=== PATIENT | female | born 1965 | race Caucasian/White ===

== ENCOUNTER 2020-03-08 08:20 | Day surgery (SDC) | payer OTHER ==
--- NOTE | 2020-03-05 10:50 | RADIOLOGY REPORT (SQ) ---
EXAM DESCRIPTION: CHEST 2 VIEWS IMAGES COMPLETED DATE/TIME: 03/05/2020 10:42 am REASON FOR STUDY: PRE OP TESTING COMPARISON: 02/18/2011 EXAM PARAMETERS: NUMBER OF VIEWS: two views TECHNIQUE: Digital Frontal and Lateral radiographic views of the chest acquired. RADIATION DOSE: NA LIMITATIONS: none FINDINGS: LUNGS AND PLEURA: No opacities, masses or pneumothorax. No pleural effusion. MEDIASTINUM AND HILAR STRUCTURES: No masses or contour abnormalities. HEART AND VASCULAR STRUCTURES: Heart normal size. No evidence for failure. BONES: No acute findings. HARDWARE: None in the chest. OTHER: No other significant finding. IMPRESSION: NO ACUTE RADIOGRAPHIC FINDING IN THE CHEST. TECHNICAL DOCUMENTATION: JOB ID: [id number] 2010 [employer]- All Rights Reserved Reading location - IP/workstation name: [email or web address]
[2020-03-05 10:56] LABS: HEMATOCRIT 35.3 % (36.0-47.0); HEMOGLOBIN 12.5 g/dL (12.0-15.5); MEAN CORPUSCULAR HEMOGLOBIN 30.9 pg (27.0-33.4); MEAN CORPUSCULAR HGB CONC 35.5 g/dL (32.0-36.0); MEAN CORPUSCULAR VOLUME 87 fl (80-97); PLATELET COUNT 260 10^3/uL (150-450); RED BLOOD COUNT 4.06 10^6/uL (3.72-5.28); RED CELL DISTRIBUTION WIDTH 13.1 % (11.5-14.0)
[2020-03-05 11:01] LABS: APPEARANCE,URINE CLEAR; BILIRUBIN,URINE NEGATIVE (NEGATIVE); COLOR,URINE YELLOW; GLUCOSE, URINE NEGATIVE (NEGATIVE); KETONES,URINE NEGATIVE (NEGATIVE); LEUKOCYTE ESTERASE,URINE NEGATIVE (NEGATIVE); NITRITE,URINE NEGATIVE (NEGATIVE); PROTEIN,URINE NEGATIVE (NEGATIVE); URINE SPECIFIC GRAVITY 1.024; UROBILINOGEN,URINE NEGATIVE mg/dL (<2.0)
[2020-03-05 11:37] LABS: ALBUMIN 4.1 g/dL (3.5-5.0); ALKALINE PHOSPHATASE 87 U/L (38-126); ANION GAP 6 (5-19); ASPARTATE AMINO TRANSFERASE 29 U/L (14-36); BILIRUBIN,DIRECT 0.3 mg/dL (0.0-0.4); BILIRUBIN,TOTAL 0.5 mg/dL (0.2-1.3); BLOOD UREA NITROGEN 22 mg/dL (7-20); CALCIUM 8.9 mg/dL (8.4-10.2); CARBON DIOXIDE 24 mmol/L (22-30); CHLORIDE 107 mmol/L (98-107); GLUCOSE 100 mg/dL (75-110); POTASSIUM 4.5 mmol/L (3.6-5.0); TOTAL PROTEIN 7.3 g/dL (6.3-8.2)
--- NOTE | 2020-03-05 13:17 | EKG REPORT ---
SEVERITY:- BORDERLINE ECG - SINUS RHYTHM BORDERLINE LEFT AXIS DEVIATION BORDERLINE T ABNORMALITIES, INFERIOR LEADS : Confirmed by: Abad Jones MD 05-Mar-2020 13:16:55
[~2020-03-08 08:20] MED LIST: CEFAZOLIN 1 GM/D5W RTU 1 GM/50 ML RTUPB IV PRN; DEXAMETHASONE SOD PHOSPHATE INJ 4 MG/1 ML VIAL ONE; DEXMEDETOMIDINE INJ 80 MCG/20 ML VIAL IV ONE; FENTANYL CITRATE INJ/PF 250 MCG/5 ML AMPULE ONE; KETOROLAC TROMETHAMINE 60 MG/2 ML SDV ONE; LIDOCAINE 2% INJ-PF (100 MG/5 ML) SYRINGE ONE; MIDAZOLAM 2 MG/2 ML INJ ONE; ONDANSETRON HCL INJ/PF 4 MG/2 ML SDV ONE; PROPOFOL INJ 200 MG/20 ML VIAL IV ONE; RINGERS SOLUTION,LACTATED 1,000 ML IV PRN
--- OUTSIDE RECORDS SUMMARY | 2020-03-08 08:33 | XMS REPORT ---
:1965 [facility] [address] [place] [address] Care Team Providers Name Role Phone Karla KRAUS Primary Care Physician Unavailable ABDIAS MESA Attending Clinician Unavailable JONAS FELIZ Attending Clinician Unavailable Dontae COTTON Attending Clinician Unavailable ROSALVA SHAH Attending Clinician Unavailable ROSALVA SHAH Admitting Clinician Unavailable Allergies, Adverse Reactions, Alerts Allergy Allergy Type Status Severity Reaction(s) Onset Inactive Treat ing Comments Name Date Date Clinician Codeine Propensity Active Low Other (See 2017-06 Claudine hoyt to adverse Comments) -30 reactions to 00:00:0 drug 0 Medications Ordered Filled Start Stop Current Ordering Indication Dosage Frequency Signature Comments Components Medication Medication Date Date Medication? Clinician (SIG) Name Name tamoxifen 2019-02- Yes Ductal 20mg Take 1 Take 1 (NOLVADEX) 0-29 10-29 carcinoma tablet (20 tablet 20 MG 00:00: 23:59 in situ mg total) (20 mg tablet 00 :00 (DCIS) of by mouth total) by right daily. mouth breast daily. tamoxifen 2019-02- No Ductal 20mg Take 1 Take 1 (NOLVADEX) 0-28 10-29 carcinoma tablet (20 tablet 20 MG 00:00: 00:00 in situ mg total) (20 mg tablet 00 :00 (DCIS) of by mouth total) by right daily. mouth breast daily. tamoxifen 2019- No Ductal 20mg Take 1 Take 1 (NOLVADEX) 6-22 10-28 carcinoma tablet (20 tablet 20 MG 00:00: 00:00 in situ mg total) (20 mg tablet 00 :00 (DCIS) of by mouth total) by right daily. mouth breast daily. ibuprofen 2018-02 Yes 600mg Take 600 Take 6 00 (MOTRIN) 2-20 mg by mg by 600 MG 09:26: mouth mouth tablet 54 every every eight (8) eight (8) hours as hours as needed for needed pain. for pain. tamoxifen 2019- No Ductal 20mg Take 1 Take 1 (NOLVADEX) 08-06 carcinoma tablet (20 tablet 20 MG 00:00: 00:00 in situ mg total) (20 mg tablet 00 :00 (DCIS) of by mouth total) by right daily. mouth breast daily. tamoxifen 2017-02 No Ductal 20mg Take 1 Take 1 (NOLVADEX) 1-15 - carcinoma tablet (20 tablet 20 MG 00:00: 00:00 in situ mg total) (20 mg tablet 00 :00 (DCIS) of by mouth total) by right daily. mouth breast daily. acetaminoph Yes 650mg Take 650 Take 650 en 8-06 mg by mg by (TYLENOL) 08:25: mouth mouth 325 MG 33 every six every six tablet (6) hours (6) hours as needed as needed for pain. for pain. ibuprofen No 200mg Take 200 Take 2 00 (CHILDREN'S 8-06 mg by mg by MOTRIN) 100 08:25: mouth mouth mg/5 mL 33 every every suspension eight (8) eight (8) hours as hours as needed for needed pain,mild for (1-3). pain,mild (1-3). tamoxifen No 20MG Take 1 Take 1 (NOLVADEX) 8- 11-15 tablet (20 tabl et 20 MG 00:00: 00:00 mg total) (20 mg tablet 00 :00 by mouth total) by daily. mouth daily. oxyCODONE-a No 1{tbl} Take 1-2 Surjit e 1-2 cetaminophe - 07-31 tablets by tab lets n 00:00: 23:59 mouth by mouth (PERCOCET) 00 :00 every four ever y 5-325 mg (4) hours four (4 ) per tablet as needed hours as for pain. needed for up to for pain. 5 days for up to 5 days sulfamethox 2017- No Take 1 Take 1 azole-trime 09-01- tablet tablet thoprim 00:00: 00:00 (160 mg of (160 m g (BACTRIM 00 :00 trimethopr of DS) 800-160 im total) trim ethop mg per by mouth rim tablet Two (2) total) by times a mouth Two day. for (2) times 10 days a day. for 10 days oxyCODONE-a 2018- No 1{tbl} Take 1 Take 1 cetaminophe 09-01 tablet by tabl et by n 00:00: 23:59 mouth mouth (PERCOCET) 00 :00 every four ever y 5-325 mg (4) hours four (4 ) per tablet as needed hours as for pain. needed for up to for pain. 5 days for up to 5 days acetaminoph 2017- No 650MG Take 2 Take 2 en 08-11 tablets tablets (TYLENOL) 00:00: 23:59 (650 mg (650 mg 325 MG 00 :00 total) by total) by tablet mouth mouth every six every six (6) hours (6) hours as needed as needed for pain. for pain. for up to for up to 14 days 14 days docusate 2018- No 100MG Take 1 Take 1 sodium 08-1103 capsule capsule (COLACE) 00:00: 23:59 (100 mg (100 mg 100 MG 00 :00 total) by total) by capsule mouth mouth daily. for daily. 7 days for 7 days oxyCODONE-a 2018- No 1{tbl} Take 1-2 Surjit e 1-2 cetaminophe 08-11 tablets by tab lets n 00:00: 23:59 mouth by mouth (PERCOCET) 00 :00 every four ever y 5-325 mg (4) hours four (4 ) per tablet as needed hours as for pain. needed for up to for pain. 5 days for up to 5 days ibuprofen Yes 200mg Take 200 Take 2 00 (CHILDREN'S 5-30 mg by mg by MOTRIN) 100 12:04: mouth mouth mg/5 mL 46 every every suspension eight (8) eight (8) hours as hours as needed for needed pain,mild for (1-3). pain,mild (1-3). lisinopril Yes 10mg Take 10 mg Surjit e 10 (PRINIVIL,Z 5-02 by mouth mg by ESTRIL) 10 00:00: Three (3) mout h MG tablet 00 times a Three (3 ) day. times a day. sertraline Yes 150mg Take 150 Take 150 (ZOLOFT) 3-26 mg by mg by 100 MG 00:00: mouth mouth tablet 00 daily. daily. Problems Condition Condition Condition Status Onset Resolution Last Treatin g Comments Name Details Category Date Date Treatment Clinician Date Ductal Ductal Condition Active 2017-07-14 carcinoma carcinoma 07-14 22:24:08 in situ in situ 00:00: (DCIS) of (DCIS) of 00 right right breast breast Procedures Procedure Date / Time Performed Performing Clinician Rashad izquierdo MAMMO DIGITAL DIAGNOSTIC 2019-08-08 08:25:53 Clementine Feliz BILATERAL MAMMO DIGITAL DIAGNOSTIC 2019-02-04 13:12:46 Clementine Feliz RIGHT MAMMO DIGITAL DIAGNOSTIC 2018-08-06 12:26:30 Clementine Feliz BILATERAL MAMMO NEEDLE LOCALIZATION 2017-08-11 11:08:56 Melba Shah RIGHT US BREAST LIMITED LEFT 2017-07-15 10:43:50 Imtiaz Shah MAMMO DIGITAL DIAGNOSTIC 2017-07-15 10:22:20 Nora Shah BILATERAL Results Test Description Test Time Test Comments Text Results Atomic Results Result Comments Mammo Diagnostic 2019-08-08 Mammo Diagnostic Bilater al (08/08/2019 8:25 AM Bilateral 08:31:32 EDT)SpecimenNarrativePerform ed AtEXAM: MAMMO (08/08/2019 8:25 DIGITAL DIAGNOSTIC BILA TERALDATE: 08/08/2019 AM EDT) 8:25 AMACCESSION: [id number] 0UNDICTATED: 08/08/2019 8:31 AMINTERPRETAT ION LOCATION: [facility] [place] CLINICAL INDICATION: 53 years old Female with CARCINOMA IN SITU OF BR EAST - 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 Status post right lumpectomy COMPARISON: 2018, 2017 studi es TECHNIQUE: Bilateral full-field digital mammography and spot compression magnificati on views right lumpectomy site BREAST DENSI TY: c - The breasts are heterogeneously dense, w hich may obscure small masses FINDINGS: At the lumpectomy site in the right breast, there i s expected density and architectural distortion . There are no suspicious masses, malignant calcifications, sites of non-surgical radha ectural distortion, or concerning asymmetries in either breast. ASSESSMENT:BI-RADS Category: 2-[id number] : Benign. Annual mammography is recommended. Recommendation Laterality: B oth Diagnostic mammogram is recommended. Th e findings and recommendation were discusse d in full with the patient. 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 Status post right mary mpectomy COMPARISON: 2018, 2017 studi es TECHNIQUE: Bilateral full-field digital mammography and spot compression magnificati on views right lumpectomy site BREAST DENSI TY: c - The breasts are heterogeneously dense, w hich may obscure small masses FINDINGS: At th e lumpectomy site in the right breast, there i s expected density and architectural distortion . There are no suspicious masses, malignant calcifications, sites of non-surgical radha ectural distortion, or concerning asymmetries in either breast. ASSESSMENT: BI-RADS Category : 2-[id number] : Benign. Annual mammography i s recommended. Recommendation Laterality: B oth Diagnostic mammogram is recommended. Th e findings and recommendation were discusse d in full with the patient. Performing OrganizationAddressCity/Stat e/ZipcodePhone Number[facility] [id number] [facility] [place] [address] #[id number] 2019-02-04 Mammo Diagnostic Right (02/04/2019 8:12 AM rocedure 08:22:55 EST)SpecimenNarrativePerform ed AtEXAM: MAMMO DIGITAL DIAGNOSTIC RIGHTDATE : 02/04/2019 8:12 AMACCESSION: [id number] CTATED: 02/04/2019 8:22 AMINTERPRETATION LOCATI ON: [facility] CLINICAL INDICATION: 53 year s old Female with CARCINOMA IN SITU OF BREAST - D05.11 - Ductal carcinoma in situ (DCIS) of right breast. Status post right lumpecto my COMPARISON: 2018, 2017, 2016 studies SABINA HNIQUE: Right breast full-field digital ma mmography and spot magnification compression vi ews BREAST DENSITY: c - The breast is heterogene ously dense, which may obscure small masses F INDINGS: There is stable density and distortio n at the lumpectomy site in the right breast com patible with post surgical changes. There are no suspicious masses, malignant type calci fications, sites of nonsurgical architectural di stortion or asymmetries in the right kaya ast. ASSESSMENT:BI-RADS Category: 2-[id number] : Benign. Mammography in 6 mon ths. Recommendation Laterality: Both Diagnostic mammogram is recommended. The findings an d recommendation were discussed in full with the patient. [facility] RADProcedure NoteInterface, Rad Results In - 02/04/2019 8:24 AM ESTEXAM: MAMMO DIGITAL DIAGNOSTIC RIGHT DATE: 02/04 8:12 AM DIC TATED: 02/04/2019 8:22 AM INTERPRETATION LOCAT ION: [facility] CLINICAL INDICATION: 53 year s old Female with CARCINOMA IN SITU OF BREAST - D05.11 - Ductal carcinoma in situ (DCIS) of right breast. Status post right lumpectomy COMPARISON: 2018, 2017, 2016 studies TECHNIQUE : Right breast full-field digital mammograp hy and spot magnification compression vi ews BREAST DENSITY: c - The breast is heterogene ously dense, which may obscure small masses FIN DINGS: There is stable density and distortio n at the lumpectomy site in the right breast com patible with post surgical changes. There are no suspicious masses, malignant type calci fications, sites of nonsurgical architectural di stortion or asymmetries in the right kaya ast. ASSESSMENT: BI-RADS Category: 2-[id number] : Benign. Mammography in 6 months. Rec ommendation Laterality: Both Diagnostic mammogram is recommended. The findings an d recommendation were discussed in full with the patient. 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 COMPARISON: 2013 TECHNIQUE: Bilateral full-fi eld digital mammography and spot milady jorje magnification views BREAST DENSITY: b - Th ere are scattered areas of fibroglandular dens ity. FINDINGS:There is expect ed density and distortion at the lumpectomy site in the right breast compatible with recen t post surgical changes. Punctate calcificat ions are seen anteromedial/inferior to the lumpectomy site, may represent early dystroph ic calcifications. There are no other suspiciou s masses, malignant type calcifications, sites o f nonsurgical architectural distortion or asymmetries in either breast. ASSESSMENT:BI -RADS Category: 3-Ifiej2lc : Probably Benign .Short-interval follow-up.Mammogram in 6 months. Recommendation Laterality: R ight Short interval 6 month right breast diagnos tic mammogram for follow-up of right breast mary mpectomy site with probably benign adjacent riddhi cifications, possibly early dystrophic. T he findings and recommendation were discusse d in full with the patient. 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 COMPARISON: 2013 TECHNIQUE: Bilateral full-field digital mammography and spot compression magnificati on views BREAST DENSITY: b - There are scatt ered areas of fibroglandular density. FIND INGS: There is expected density and distort ion at the lumpectomy site in the right breast compatible with recent post surgical ch anges. Punctate calcifications are seen ante romedial/inferior to the lumpectomy site, may represent early dystrophic calcifications. T here are no other suspicious masses, malignant type calcifications, sites of non surgical architectural distortion or asymmetries in either breast. ASSESSMENT: B I-RADS Category: 3-Znqfv4ls : Probably Benign . Short-interval follow-up. Mammogram in 6 mo nths. Recommendation Laterality: R ight Short interval 6 month right breast diagnos tic mammogram for follow-up of right breast mary mpectomy site with probably benign adjacent riddhi cifications, possibly early dystrophic. T he findings and recommendation were discusse d in full with the patient. Performing OrganizationAddressCity/Stat e/ZipcodePhone NumberTHE [facility] [id number] [place] [address] Mammo Needle 2017-08-11 Mammo Needle Localization Ri t (08/11/2017 Localization Right 11:08:56 11:08 AM) Specimen Per forming Laboratory [facility] RAD [address] [place] [address] Impressions Successful mammo graphically guided needle localization of calci fications and metallic marker clip in the right breast. The specimen radiograph contains the preoperatively localized calcifications,?biopsy clip and localization wire. Narrative EXAM: MAMMO NEEDLE LOCALIZATION RIGHT DATE: 07/18 11:08 AM DIC TATED: 08/11/2017 5:06 PM INTERPRETATION LOCAT ION: [facility] CLINICAL INDICATION: 51 year s old Female: DCIS-D05.11-Ductal carcinoma in situ (DCIS) of right breast.?Needle loca lization prior to surgery. TECHNIQUE: The proc edure and risks of mammographically guided need le localization of calcifications and a metalli c marker clip in the lateral right breast wer e discussed in full with the patient. Both oral and written consents were obtained. A ti me-out was performed immediately prior to the procedure. With imaging guidance, asept ic technique, and 1% lidocaine as the local an esthetic, the area of concern was localized wit h a 5 cm Kopans needle. The direction of loc alization approach was from?lateral to media l. FINDINGS: The targeted calcifications and marker clip are located along the reinforced segment/hook?junction of the wire. Unilateral digital diagnosti c mammograms demonstrate satisfactory pos itioning of the localization wire in CC and true lateral projections. The patient nery erated the procedure well, without comp lication. The patient was sent to the [facility] are area following the procedure. The specimen radiograph demonstrates the localized t arget and the intact localization wire to be present in the specimen.?Dr. Horton (Dr. Shah's resident) is aware of the ab ove. Dr. Kayla Mesa?performed the procedure. Procedure Note Interface, Ra reyez Results In - 08/11/2017 5:25 PM EDT EXAM: MAMMO NEEDLE LOCALIZATION RIGHT DATE: 07/18 11:08 AM DIC TATED: 08/11/2017 5:06 PM INTERPRETATION LOCAT ION: [facility] CLINICAL INDICATION: 51 year s old Female: DCIS-D05.11-Ductal carcinoma in situ (DCIS) of right breast. Needle localiz ation prior to surgery. TECHNIQUE: The proc edure and risks of mammographically guided need le localization of calcifications and a metalli c marker clip in the lateral right breast wer e discussed in full with the patient. Both oral and written consents were obtained. A ti me-out was performed immediately prior to the procedure. With imaging guidance, asept ic technique, and 1% lidocaine as the local an esthetic, the area of concern was localized wit h a 5 cm Kopans needle. The direction of loc alization approach was from lateral to medial. FINDINGS: The targeted calcifications and marker clip are located along the reinforced segment/hook junction of the wire. Unilat eral digital diagnostic mammograms demons trate satisfactory positioning of the localizat ion wire in CC and true lateral projections. Th e patient tolerated the procedure well, without complication. The patient was sent to the [facility] are area following the procedure. The specimen radiograph demonstrates the localized t arget and the intact localization wire to be present in the specimen. Dr. Horton (Dr. Abrahan rehman's resident) is aware of the above. Dr. Karla Mesa performed the procedure. IMP RESSION: Successful mammographically guided need le localization of calcifications and metallic marker clip in the right breast. The specimen r adiograph contains the preoperatively localized calcifications, biopsy clip and localization wire. US Breast Limited 2017-07-15 US Breast Limited Left (07/15/2017 10:43 AM) Left 10:43:50 Specimen Performing [facility] RAD [address] [place] [address] Narrative EXAM: US BREAST LIMITED LEFT, MAMM O DIGITAL DIAGNOSTIC BILATERAL DATE: 10:43 AM 20 [id number] DICTATED: 07/15/2017 11:45 AM INTERPRETATION LOCATION: [facility] [place] [place] [facility] AL INDICATION: 51 years old Female with -D05.1 1-Ductal carcinoma in situ (DCIS) of right [address].Patient presents for additional view s of known right DCIS and evaluation of the l eft breast. TECHNIQUE: Full-field digital diagnostic mammography with compression magnification views of the r ight breast, bilateral tomosynthesis, and targeted diagnostic left breast ultra sound were performed. COMPARISON: 2017, 05/22/2017, 02/25/2016 BREAST DENSITY: c - The breasts are heterogeneously dense, which may obscure small masses FINDINGS: Mammogram: In the right breast upper outer quadrant, there is a 2.0 x 1.8 x 1.1 cm (AP by transverse by craniocaudal) group of malignant calcifications with associated asymmetry. A previously plac ed biopsy clip is associated. In the retroareo lar left breast a 0.7 cm asymmetry with possib le internal lucency. There are no malign ant calcifications, sites of architectural disto rtion, or concerning asymmetries in th e left breast. Ultrasound: Targeted ultraso und of the retroareolar left breast curt ws multiple prominent ducts without intr aductal masses. No suspicious left breast findi ng identified. ASSESSMENT: BI-RADS Category : 6-SxExcision : Known biopsy proven right br east malignancy.Surgical exci jorje when clinically appropriate. Shelley mmendation Laterality: Right Surgical e xcision when clinically appropriate. No r adiographic evidence of malignancy in th e left breast. Prominent ducts without evid ence of intraductal mass. These results and shelley mmendations were discussed in full with the p juan. She proceeded to her next breast clinic appointment. Procedure Note Interface, Rad Results In - 07/15/2017 2:21 PM EDT EXAM: US BREAST LIMITED LEFT, MAMMO D IGITAL DIAGNOSTIC BILATERAL DATE: 07/15/2017 10 :43 AM [id number] DICTATED: 07/15/2017 11:45 AM INTERPRET ATION LOCATION: [facility] CLINICAL INDICAT ION: 51 years old Female with -D05.11-Ductal c arcinoma in situ (DCIS) of right breast. Roxanne ent presents for additional views of known ri ght DCIS and evaluation of the left breas t. TECHNIQUE: Full-field digital diagnosti c mammography with compression magnification vi ews of the right breast, bilateral tomosynthe sis, and targeted diagnostic left breast ultra sound were performed. COMPARISON: 2017, 05/22/2017, 02/25/2016 BREAST DENSITY: c - The breasts are heterogeneously dense, which may obscure small masses FINDINGS: Mammogram: In the right breast upper outer quadrant, there is a 2.0 x 1.8 x 1.1 cm (AP by transverse by craniocaudal) group of malignant calcifications with associated asymmetry. A previously plac ed biopsy clip is associated. In the retroareo lar left breast a 0.7 cm asymmetry with possib le internal lucency. There are no malign ant calcifications, sites of architectural disto rtion, or concerning asymmetries in th e left breast. Ultrasound: Targeted ultraso und of the retroareolar left breast curt ws multiple prominent ducts without intr aductal masses. No suspicious left breast findi ng identified. ASSESSMENT: BI-RADS Category : 6-SxExcision : Known biopsy proven right br east malignancy. Surgical excision when clini fe appropriate. Recommendation Laterality: R ight Surgical excision when clinically suzie ropriate. No radiographic evidence of mal ignancy in the left breast. Prominent ducts with out evidence of intraductal mass. These resu lts and recommendations were discuss ed in full with the patient. She proceeded to he r next breast clinic appointment. MAMMO DIGITAL 2017-07-15 MAMMO DIGITAL DIAGNOSTIC BI LATERAL (07/15/2017 DIAGNOSTIC 10:22:20 10:22 AM) Specimen Performin g Laboratory [facility] [address] [place] [address] Narrative EXAM: US BREAST LI MITED LEFT, MAMMO DIGITAL DIAGNOSTIC BILATERAL DATE: 07/15/2017 10:43 AM [id number], [id number] DICTATED: 07/15 11:45 AM INTERPRETATION LOCATION: [facility] CLINICAL INDICATION: 51 years old Fem maricel with -D05.11-Ductal carcinoma in situ (DCIS) of right breast.Patient pre sents for additional views of known ri ght DCIS and evaluation of the left breas t. TECHNIQUE: Full-field digital d iagnostic mammography with compression magnification views of the right breast, b ilateral tomosynthesis, and targeted diagnostic left breast ultrasound were perfo rmed. COMPARISON: 06/04/2017, 05/22/2017, 7 BREAST DENSITY: c - The breasts are heterogene ously dense, which may obscure small masses FIN DINGS: Mammogram: In the right breast upper ou ter quadrant, there is a 2.0 x 1.8 x 1.1 cm (AP by transverse by craniocaudal) group of malig nant calcifications with associated asymmetry. A previously placed biopsy clip is associated. I n the retroareolar left breast a 0.7 cm asymmet ry with possible internal lucency. There are no malignant calcifications, sites of arc hitectural distortion, or concerning as ymmetries in the left breast. Ultrasound: Tar geted ultrasound of the retroareolar left breast shows multiple prominent ducts without intr aductal masses. No suspicious left breast findi ng identified. ASSESSMENT: BI-RADS Category : 6-SxExcision : Known biopsy proven right br east malignancy.Surgical exci jorje when clinically appropriate. Shelley mmendation Laterality: Right Surgical e xcision when clinically appropriate. No r adiographic evidence of malignancy in th e left breast. Prominent ducts without evid ence of intraductal mass. These results and shelley mmendations were discussed in full with the p juan. She proceeded to her next breast clinic appointment. Procedure Note Interface, Rad Results In - 07/15/2017 2:21 PM EDT EXAM: US BREAST LIMITED LEFT, MAMMO D IGITAL DIAGNOSTIC BILATERAL DATE: 07/15/2017 10 :43 AM [id number] DICTATED: 07/15/2017 11:45 AM INTERPRET ATION LOCATION: [facility] CLINICAL INDICAT ION: 51 years old Female with -D05.11-Ductal c arcinoma in situ (DCIS) of right breast. Roxanne ent presents for additional views of known ri ght DCIS and evaluation of the left breas t. TECHNIQUE: Full-field digital diagnosti c mammography with compression magnification vi ews of the right breast, bilateral tomosynthe sis, and targeted diagnostic left breast ultra sound were performed. COMPARISON: 2017, 05/22/2017, 02/25/2016 BREAST DENSITY: c - The breasts are heterogeneously dense, which may obscure small masses FINDINGS: Mammogram: In the right breast upper outer quadrant, there is a 2.0 x 1.8 x 1.1 cm (AP by transverse by craniocaudal) group of malignant calcifications with associated asymmetry. A previously plac ed biopsy clip is associated. In the retroareo lar left breast a 0.7 cm asymmetry with possib le internal lucency. There are no malign ant calcifications, sites of architectural disto rtion, or concerning asymmetries in th e left breast. Ultrasound: Targeted ultraso und of the retroareolar left breast curt ws multiple prominent ducts without intr aductal masses. No suspicious left breast findi ng identified. ASSESSMENT: BI-RADS Category : 6-SxExcision : Known biopsy proven right br east malignancy. Surgical excision when clini fe appropriate. Recommendation Laterality: R ight Surgical excision when clinically suzie ropriate. No radiographic evidence of mal ignancy in the left breast. Prominent ducts with out evidence of intraductal mass. These resu lts and recommendations were discuss ed in full with the patient. She proceeded to he r next breast clinic appointment. Encounters Start End Encounter Admission Attending Care Care Encounter ID Date/Time Date/Time Type Type Clinicians Facility Department 2019-12-15 2019-12-15 Outpatient [facility] [id number] 00:00:00 00:00:00 2019-12-14 2019-12-14 Outpatient [facility] [id number] 00:00:00 00:00:00 2019-08-08 2019-08-08 Outpatient LAY MESA, [facility] [id number] 07:44:19 23:59:00 KAYLA [id number] 2019-08-08 2019-08-08 Outpatient [facility] [id number] 07:44:00 23:59:00 2019-08-08 2019-08-08 Outpatient [facility] [id number] 09:40:55 09:41:34 [id number] 2019-08-08 2019-08-08 Outpatient [facility] [id number] 09:40:55 09:41:34 2019-08-08 2019-08-08 Outpatient CRISTIAN BRASWELL [facility] [id number] 00:00:00 00:00:00 KAYLA [id number] 2019-02-04 2019-02-04 Outpatient CRISTIAN GLOVER [facility] [id number] 07:36:01 23:59:00 CLEMENTINE [id number] 2019-02-04 2019-02-04 Outpatient [facility] [id number] 07:36:00 23:59:00 2019-02-04 2019-02-04 Outpatient EL [facility] [id number] 07:35:29 09:47:47 [id number] 2019-02-04 2019-02-04 Outpatient [facility] [id number] 07:35:29 09:47:47 2019-02-04 2019-02-04 Outpatient CRISTIAN GLOVER [facility] [id number] 00:00:00 00:00:00 CLEMENTINE [id number] 2018-08-06 2018-08-06 Outpatient CRISTIAN GLOVER [facility] [id number] 07:51:26 23:59:00 CLEMENTINE [id number] 2018-08-06 2018-08-06 Outpatient [facility] [id number] 07:51:26 23:59:00 2018-08-06 2018-08-06 Outpatient EL CRISTIAN [facility] [id number] 07:48:48 09:44:38 [id number] 2018-08-06 2018-08-06 Outpatient [facility] [id number] 07:48:48 09:44:38 2018-08-06 2018-08-06 Outpatient CRISTIAN GLOVER [facility] [id number] 00:00:00 00:00:00 CLEMENTINE [id number] 2018-07-23 2018-07-23 Outpatient EL [facility] [id number] 00:00:00 00:00:00 [id number] 2018-06-11 2018-06-11 Outpatient [facility] [id number] 00:00:00 00:00:00 2018-06-11 2018-06-11 [facility]patient [facility] [id number] 00:00:00 00:00:00 2018-06-04 2018-06-04 [facility]patient [facility] [id number] 00:00:00 00:00:00 2018-01-01 2018-01-01 [facility]patient [facility] [id number] 00:00:00 00:00:00 2017-12-31 2017-12-31 [facility]patient [facility] [id number] 00:00:00 00:00:00 2017-12-31 2017-12-31 [facility] [id number] 00:00:00 00:00:00 2017-12-16 2017-12-16 Outpatient [facility] [id number] 23:59:00 23:59:00 2017-12-16 2017-12-16 G LAY COTTON, [facility] [id number] 00:00:00 23:59:00 GAORAPilar [id number] 2017-12-16 2017-12-16 Outpatient [facility] [id number] 00:00:00 00:00:00 2017-12-04 2017-12-04 [facility] [id number] 00:00:00 00:00:00 2017-12-03 2017-12-03 [facility] [id number] 00:00:00 00:00:00 2017-09-21 2017-09-21 Outpatient EL [facility] [id number] 08:03:26 08:50:19 [id number] 2017-09-21 2017-09-21 Outpatient [facility] [id number] 08:03:26 08:50:19 2017-09-21 2017-09-21 Outpatient EL [facility] [id number] 00:00:00 00:00:00 [id number] 2017-09-21 2017-09-21 Outpatient EL [facility] [id number] 00:00:00 00:00:00 [id number] 2017-09-10 2017-09-10 Outpatient EL SHAH, [facility] [id number] 13:36:00 18:06:00 IMTIAZ [id number] 2017-09-10 2017-09-10 Outpatient [facility] [id number] 13:36:00 18:06:00 2017-09-10 2017-09-10 Outpatient PABLO, [facility] [id number] 15:35:00 15:35:00 KRISTALYN [id number] 2017-09-10 2017-09-10 Outpatient PABLO, [facility] [id number] 00:00:00 00:00:00 KRISTALYN [id number] 2017-09-09 2017-09-09 Outpatient [facility] [id number] 00:00:00 00:00:00 [id number] 2017-09-07 2017-09-07 Outpatient EL [facility] [id number] 08:12:52 09:04:16 [id number] 2017-09-07 2017-09-07 Outpatient [facility] [id number] 08:12:52 09:04:16 2017-09-07 2017-09-07 Outpatient EL [facility] [id number] 00:00:00 00:00:00 [id number] 2017-09-02 2017-09-02 Outpatient [facility] [id number] 00:00:00 00:00:00 2017-09-01 2017-09-01 [id number] 08:11:00 13:38:00 KRISTALYN [id number] 2017-09-01 2017-09-01 Outpatient [facility] [id number] 08:11:00 13:38:00 2017-09-01 2017-09-01 Outpatient PABLO, [facility] [id number] 12:57:00 12:57:00 KRISTALYN [id number] 2017-09-01 2017-09-01 Outpatient PABLO, [facility] [id number] 12:56:00 12:56:00 KRISTALYN [id number] 2017-09-01 2017-09-01 Outpatient PABLO, [facility] [id number] 12:55:00 12:55:00 KRISTALYN [id number] 2017-09-01 2017-09-01 Outpatient SHAH, [facility] [id number] 10:25:00 10:25:00 KRISTALYN [id number] 2017-09-01 2017-09-01 Outpatient PABLO, [facility] [id number] 00:00:00 00:00:00 KRISTALYN [id number] 2017-08-26 2017-08-26 Outpatient [facility] [id number] 00:00:00 00:00:00 2017-08-24 2017-08-24 Outpatient EL [facility] [id number] 08:25:57 09:14:09 [id number] 2017-08-24 2017-08-24 [facility]patient [facility] [id number] 08:25:57 09:14:09 2017-08-24 2017-08-24 Outpatient EL [facility] [id number] 00:00:00 00:00:00 [id number] 2017-08-24 2017-08-24 Outpatient [facility] [id number] 00:00:00 00:00:00 2017-08-11 2017-08-11 Outpatient EL [facility]ABLO [facility] [id number] 09:03:24 23:59:00 KRISTALYN [id number] 2017-08-11 2017-08-11 Outpatient [facility] [id number] 09:03:24 23:59:00 2017-08-11 2017-08-11 Outpatient EL PABLO [facility] [id number] 09:00:00 18:17:00 KRISTALYN [id number] 2017-08-11 2017-08-11 Outpatient [facility] [id number] 09:00:00 18:17:00 2017-08-11 2017-08-11 Outpatient [facility]ABLO [facility] [id number] 15:00:00 15:00:00 KRISTALYN [id number] 2017-08-11 2017-08-11 Outpatient [facility] [id number] 14:10:00 14:10:00 KRISTALYN [id number] 2017-08-11 2017-08-11 Outpatient [facility] [id number] 13:34:00 13:34:00 KRISTALYN [id number] 2017-08-11 2017-08-11 Outpatient SHAH, [facility] [id number] 13:19:00 13:19:00 KRISTALYN [id number] 2017-08-11 2017-08-11 Outpatient SHAH, [facility] [id number] 12:49:00 12:49:00 KRISTALYN [id number] 2017-08-11 2017-08-11 Outpatient SHAH, [facility] [id number] 12:46:00 12:46:00 KRISTALYN [id number] 2017-08-11 2017-08-11 Outpatient SHAH, [facility] [id number] 12:36:00 12:36:00 KRISTALYN [id number] 2017-08-11 2017-08-11 Outpatient SHAH, [facility] [id number] 12:06:00 12:06:00 KRISTALYN [id number] 2017-08-11 2017-08-11 Outpatient SHAH, [facility] [id number] 11:56:00 11:56:00 KRISTALYN [id number] 2017-08-11 2017-08-11 Outpatient SHAH, [facility] [id number] 11:50:00 11:50:00 KRISTALYN [id number] 2017-08-11 2017-08-11 Outpatient SHAH, [facility] [id number] 11:41:00 11:41:00 KRISTALYN [id number] 2017-08-11 2017-08-11 Outpatient EL [facility] [id number] 00:00:00 00:00:00 [id number] 2017-08-11 2017-08-11 Outpatient EL SHAH, [facility] [id number] 00:00:00 00:00:00 KRISTALYN [id number] 2017-08-10 2017-08-10 Outpatient [facility] [id number] 00:00:00 00:00:00 [id number] 2017-07-31 2017-07-31 [facility] [id number] 00:00:00 00:00:00 2017-07-30 2017-07-30 [facility] [id number] 00:00:00 00:00:00 2017-07-21 2017-07-21 Outpatient EL [facility] [id number] 09:15:01 13:55:41 [id number] 2017-07-21 2017-07-21 Outpatient [facility] [id number] 09:15:01 09:30:00 2017-07-21 2017-07-21 Outpatient EL [facility] [id number] 08:06:01 09:16:03 [id number] 2017-07-21 2017-07-21 Outpatient [facility] [id number] 08:06:01 09:16:03 2017-07-21 2017-07-21 Outpatient EL [facility] [id number] 00:00:00 00:00:00 [id number] 2017-07-15 2017-07-15 Outpatient LAY MESA, [facility] [id number] 14:40:41 23:59:00 KAYLA [id number] 2017-07-15 2017-07-15 Outpatient [facility] [id number] 14:40:41 23:59:00 2017-07-15 2017-07-15 Outpatient LAY MESA, [facility] [id number] 14:38:30 23:59:00 KAYLA [id number] 2017-07-15 2017-07-15 Outpatient [facility] [id number] 14:38:30 23:59:00 2017-07-15 2017-07-15 Outpatient LAY COTTON, [facility] [id number] 10:42:06 23:59:00 AYALA [id number] 2017-07-15 2017-07-15 Outpatient [facility] [id number] 10:42:06 23:59:00 2017-07-15 2017-07-15 Outpatient LAY COTTON [facility] [id number] 08:09:12 23:59:00 BRIANV [id number] 2017-07-15 2017-07-15 Outpatient [facility] [id number] 08:09:12 23:59:00 2017-07-15 2017-07-15 Outpatient EL [facility] [id number] 08:05:16 16:03:07 [id number] 2017-07-15 2017-07-15 Outpatient EL [facility] [id number] 08:08:44 16:03:01 [id number] 2017-07-15 2017-07-15 Outpatient EL [facility] [id number] 15:09:17 08:16:25 [id number] 2017-07-15 2017-07-15 Outpatient [facility] [id number] 00:00:00 00:00:00 [id number] 2017-07-15 Outpatient EL [facility] [id number] 00:00:00 00:00:00 [id number] 2017-07-10 Outpatient KUAakashMIAK, [facility] [id number] 14:29:35 23:59:00 KAYLA [id number] 2017-07-10 2017-07-10 Outpatient [facility] [id number] 14:29:35 23:59:00 2017-07-10 2017-07-10 Outpatient KUZMIAK, [facility] [id number] 14:28:44 23:59:00 KAYLA [id number] 2017-07-10 2017-07-10 Outpatient [facility] [id number] 14:28:44 23:59:00 2017-07-10 2017-07-10 Outpatient KUAakashMIAK, [facility] [id number] 14:27:51 23:59:00 KAYLA [id number] 2017-07-10 2017-07-10 Outpatient [facility] [id number] 14:27:51 23:59:00 2017-07-10 2017-07-10 Outpatient KUZMIAK, [facility] [id number] 14:26:30 23:59:00 KAYLA [id number] 2017-07-10 2017-07-10 Outpatient [facility] [id number] 14:26:30 23:59:00 2017-07-10 2017-07-10 Outpatient [facility] [id number] 00:00:00 00:00:00 [id number] 2017-07-08 2017-07-08 Outpatient EL [facility] [id number] 00:00:00 00:00:00 [id number] Payers Payer Name Policy Type Policy Number Effective Date Expiration D timbo [facility] [id number] 2017 00:00:0 0 Plan of Treatment Planned Activity Planned Date Details Comments Future Scheduled Test [code = ] Future Scheduled Test [code = ] Future Scheduled Test [code = ] Future Scheduled Test [code = ] Future Scheduled Test [code = ] Future Scheduled Test [code = ] Future Scheduled Test [code = ] Future Scheduled Test [code = ] Future Scheduled Test [code = ] Future Scheduled Test [code = ] Future Scheduled Test [code = ] Future Scheduled Test [code = ] Future Scheduled Test [code = ] Future Scheduled Test [code = ] Future Scheduled Test [code = ] Future Scheduled Test [code = ] Future Scheduled Test [code = ] Future Scheduled Test [code = ] Future Scheduled Test [code = ] Future Scheduled Test [code = ] Future Scheduled Test [code = ] Future Scheduled Test [code = ] Future Scheduled Test [code = ] Future Scheduled Test [code = ] Future Scheduled Test [code = ] Future Scheduled Test [code = ] Future Scheduled Test [code = ] Future Scheduled Test [code = ] Future Scheduled Test [code = ] Future Scheduled Test [code = ] Future Scheduled Test [code = ] Future Scheduled Test [code = ] Future Scheduled Test [code = ] Future Scheduled Test [code = ] Social History Social Habit Start Date Stop Date Comments History of tobacco use Sex Assigned At Tobacco smoking status MAIS 2019-08-08 00:00:00 2019-08-08 00:00 :00 Cigarettes smoked current (pack per 2019-08-08 00:00:00 00:00:00 day) - Reported Cigarette pack-years 2019-08-08 00:00:00 2019-08-08 00:00:00 Alcohol intake 2019-08-08 00:00:00 2019-08-08 00:00:00 Tobacco use and exposure 2019-08-08 00:00:00 2019-08-08 00:00:00 Vital Signs Vital Name Observation Time Observation Value Comments Body height 2019-08-08 08:50:00 160 cm Body weight 2019-08-08 08:50:00 76.839 kg Oxygen saturation in Arterial blood by 2019-08-08 08:50:00 96 % Pulse oximetry Systolic blood pressure 2019-08-08 08:50:00 171 mm[Hg] Diastolic blood pressure 2019-08-08 08:50:00 85 mm[Hg] Heart rate 2019-08-08 08:50:00 70 /min Body temperature 2019-08-08 08:50:00 36.67 Mary Respiratory rate 2019-08-08 08:50:00 16 /min Systolic blood pressure 2019-02-04 09:25:00 144 mm[Hg] Diastolic blood pressure 2019-02-04 09:25:00 81 mm[Hg] Heart rate 2019-02-04 09:25:00 83 /min Body temperature 2019-02-04 09:25:00 37.17 Mary Respiratory rate 2019-02-04 09:25:00 16 /min Body height 2019-02-04 09:25:00 160 cm Body weight 2019-02-04 09:25:00 79.969 kg Systolic blood pressure 2018-08-06 08:48:00 133 mm[Hg] Diastolic blood pressure 2018-08-06 08:48:00 96 mm[Hg] Heart rate 2018-08-06 08:48:00 72 /min Body temperature 2018-08-06 08:48:00 36.61 Mary Respiratory rate 2018-08-06 08:48:00 18 /min Body height 2018-08-06 08:48:00 160 cm Body weight 2018-08-06 08:48:00 79.017 kg SYSTOLIC BLOOD PRESSURE 2017-09-21 08:14:00 146 mm[Hg] DIASTOLIC BLOOD PRESSURE 2017-09-21 08:14:00 95 mm[Hg] HEART RATE 2017-09-21 08:14:00 75 /min BODY TEMPERATURE 2017-09-21 08:14:00 36.78 Mary RESPIRATORY RATE 2017-09-21 08:14:00 18 /min WEIGHT 2017-09-21 08:14:00 80.1 kg OXYGEN SATURATION 2017-09-21 08:14:00 97 % SYSTOLIC BLOOD PRESSURE 2017-09-10 17:56:00 115 mm[Hg] DIASTOLIC BLOOD PRESSURE 2017-09-10 17:56:00 69 mm[Hg] HEART RATE 2017-09-10 17:56:00 70 /min BODY TEMPERATURE 2017-09-10 17:56:00 36.28 Mary RESPIRATORY RATE 2017-09-10 17:56:00 16 /min OXYGEN SATURATION 2017-09-10 17:56:00 97 % WEIGHT 2017-09-10 13:50:00 79 kg SYSTOLIC BLOOD PRESSURE 2017-09-07 08:25:00 129 mm[Hg] DIASTOLIC BLOOD PRESSURE 2017-09-07 08:25:00 83 mm[Hg] HEART RATE 2017-09-07 08:25:00 84 /min BODY TEMPERATURE 2017-09-07 08:25:00 36.61 Mary RESPIRATORY RATE 2017-09-07 08:25:00 18 /min HEIGHT 2017-09-07 08:25:00 160 cm WEIGHT 2017-09-07 08:25:00 79.652 kg OXYGEN SATURATION 2017-09-07 08:25:00 96 % HEART RATE 2017-09-01 13:15:00 72 /min BODY TEMPERATURE 2017-09-01 13:15:00 36.5 Mary OXYGEN SATURATION 2017-09-01 13:10:00 96 % SYSTOLIC BLOOD PRESSURE 2017-09-01 13:00:00 121 mm[Hg] DIASTOLIC BLOOD PRESSURE 2017-09-01 13:00:00 71 mm[Hg] RESPIRATORY RATE 2017-09-01 12:45:00 18 /min WEIGHT 2017-09-01 09:01:00 79.1 kg SYSTOLIC BLOOD PRESSURE 2017-08-24 08:41:00 121 mm[Hg] DIASTOLIC BLOOD PRESSURE 2017-08-24 08:41:00 94 mm[Hg] HEART RATE 2017-08-24 08:41:00 77 /min BODY TEMPERATURE 2017-08-24 08:41:00 36.61 Mary RESPIRATORY RATE 2017-08-24 08:41:00 16 /min HEIGHT 2017-08-24 08:41:00 160 cm WEIGHT 2017-08-24 08:41:00 79.7 kg OXYGEN SATURATION 2017-08-24 08:41:00 98 % SYSTOLIC BLOOD PRESSURE 2017-08-11 18:00:00 133 mm[Hg] DIASTOLIC BLOOD PRESSURE 2017-08-11 18:00:00 79 mm[Hg] HEART RATE 2017-08-11 18:00:00 80 /min BODY TEMPERATURE 2017-08-11 18:00:00 36.28 Mary OXYGEN SATURATION 2017-08-11 18:00:00 95 % RESPIRATORY RATE 2017-08-11 17:20:00 20 /min HEIGHT 2017-08-11 11:46:00 160 cm WEIGHT 2017-08-11 11:46:00 80.3 kg
[2020-03-08] MEDS ORDERED: CEFAZOLIN 1 GM/D5W RTU 1 GM/50 ML RTUPB IV ONE (08:37)
[2020-03-08] MEDS ORDERED: PROMETHAZINE HCL INJ 25 MG/1 ML VIAL IV PRN ×2 (11:29→12:21)
[2020-03-08] MEDS ORDERED: DIPHENHYDRAMINE HCL 50 MG/ML VIAL IV PRN (11:29)
[2020-03-08] MEDS ORDERED: ONDANSETRON HCL INJ/PF 4 MG/2 ML SDV IV PRN (11:29)
[2020-03-08] MEDS ORDERED: FENTANYL CITRATE INJ/PF 100 MCG/2 ML AMPUL IV PRN ×2 (11:29)
[2020-03-08] MEDS ORDERED: MEPERIDINE HCL/PF INJ 25 MG/1 ML DISP.SYRIN IV PRN (11:29)
[2020-03-08] MEDS ORDERED: GLYCOPYRROLATE 1 MG/5 ML VIAL ONE (11:35)
[2020-03-08] MEDS ORDERED: METOCLOPRAMIDE HCL INJ/PF 10 MG/2 ML SDV ONE (11:35)
[2020-03-08] MEDS ORDERED: NORMAL SALINE INJ/PF 0.9% 10 ML SDV ONE (11:35)
[2020-03-08] MEDS ORDERED: NEOSTIGMINE METHYLSULFATE 10 MG/10 ML VIAL ONE (11:35)
[2020-03-08] MEDS ORDERED: ROCURONIUM BROMIDE INJ 50 MG/5 ML VIAL IV ONE (11:35)
[2020-03-08] MEDS ORDERED: OXYCODONE-ACETAMINOPHEN 5-325 MG TABLET PO PRN ×2 (12:21)
[2020-03-08] MEDS ORDERED: SIMETHICONE 80 MG TAB.CHEW PO PRN (12:21)
[2020-03-08] MEDS ORDERED: MORPHINE SULFATE 10 MG/ML INJ IV PRN (12:21)
[2020-03-08] MEDS ORDERED: ACETAMINOPHEN 325 MG TABLET PO PRN (12:21)
[2020-03-08] MEDS ORDERED: RINGERS SOLUTION,LACTATED 1,000 ML IV PRN (12:21)
[2020-03-08] MEDS ORDERED: DIPH/PERTUSS(ACELL)/TETANUS VAC/PF 0.5 ML SYR (>=10YO) IM PRN (12:21)
[2020-03-08] MEDS ORDERED: ACETAMINOPHEN 1,000 MG/100 ML RTUPB IV PRN (12:21)
[2020-03-08] MEDS ORDERED: MEASLES,MUMPS&RUBELLA VACC/PF 0.5 ML VIAL SUBCUT PRN (12:21)
--- NOTE | 2020-03-08 12:38 | Operative Report ---
Operative Report DATE OF SURGERY: 03/08/20 PREOPERATIVE DIAGNOSIS: Symptomatic fibroids, history of breast cancer, postmen opausal bleeding, history of breast cancer POSTOPERATIVE DIAGNOSIS: Same OPERATION: Biotic assisted total laparoscopic hysterectomy with bilateral angela pingo-oophorectomy SURGEON: CALISTA GODINEZ 1ST DOOR INSTALLER: KENRICK JACK 2ND Coal Weigher: YOLIE LAM ANESTHESIA: GA TISSUE REMOVED OR ALTERED: Uterus cervix bilateral fallopian tubes and ovaries COMPLICATIONS: None ESTIMATED BLOOD LOSS: 200 cc INTRAOPERATIVE FINDINGS: Enlarged uterus approximately 12 weeks size with multiple fibroids noted. Normal postmenopausal ovaries PROCEDURE: Patient was taken to the operating room prepared and draped in normal sterile fashion in dorsolithotomy position. Under sterile conditions a Bailey catheter was placed to gravity. Speculum was placed into the vagina and the cervix was grasped on the anterior lip with a single-tooth tenaculum. The cervix was then dilated to accommodate a medium V care uterine manipulator. Manipulator was placed gloves were changed and attention was turned to the upper portion of the case. A 2-1/2 cm umbilical skin incision was made 11 blade and this was carried through to the underlying layer of fascia with the same 11 blade. It was grasped to Avis's acted with Aleman's. New cavity was entered bluntly. A GelPort was placed in a normal fashion the camera port and air seal in the appropriate locations. Purcell was then inflated with approximately 2 L of CO2 gas. The camera was then introduced into the peritoneal cavity through the camera port and the patient was placed in steep Trendelenburg. The above findings were noted. Under direct visualization two 5 mm ports were placed approximately 10 cm on either side of the umbilicus. The robot was then docked with the vessel sealer placed on the patient's left and the monopolar scissors placed placed on the patient's right. I then unscrubbed and set at the robotic console beginning with the left adnexa the ovary and fallopian tube was transected from the IP ligament using the vessel sealer and monopolar scissors as needed. The uterine artery was then transected using the vessel sealer. The uterine artery was skeletonized using blunt dissection and ligated using the vessel sealer down to the level of the external cervical os. The bladder flap was then begun using monopolar scissors and blunt dissection over the V care cup noted through the mucosa. Attention was then turned to the right adnexa where the ovary and fallopian tube was transected in a similar fashion from the IP ligament. The Uterine artery was then transected using the vessel sealer and skeletonized using blunt dissection. The vessel sealer was again used to completely transect the uterine artery down to the level of the external cervical os. The bladder flap was completed using similar sharp and blunt dissection. Once the bladder was felt to be adequately away from the lower uterine segment, the colpotomy was begun on the anterior aspect of the cervix following the outline of the V care cup mucosa. The cup was followed in a circumferential fashion completely around the cervix estimate was completely freed. The specimen was then removed through the vaginal defect. The instruments were then changed to a Rodolfo needle local bulk driver and pro-grasp. AV lock needle was introduced through the assistance port. The lock needle was used to close the vaginal cuff and hemostasis. The needle was then removed through the assistance port. The peritoneal cavity was carefully inspected the ureters were noted to both be peristalsing and there was no signs of hydroureter. The robot was then undocked. The fascia was closed at the umbilical skin incision seen 0 Vicryl 3 skin incisions were closed using 4-0 Vicryl. Sponge lap and needle counts were correct x2 and the patient was taken to recovery in stable condition.
[2020-03-08] MEDS ORDERED: FENTANYL CITRATE INJ/PF 100 MCG/2 ML AMPUL ONE (12:48)
[2020-03-08] MEDS: FENTANYL CITRATE INJ/PF 100 MCG/2 ML AMPUL IV PRN ×2 (12:50→13:02)
[2020-03-08] MEDS ORDERED: KETOROLAC TROMETHAMINE INJ/PF 30 MG/1 ML SDV IV SCH ×2 (14:00→20:00)
[2020-03-08] MEDS ORDERED: DOCUSATE SODIUM 100 MG CAPSULE PO SCH (18:00)
[2020-03-09] MEDS ORDERED: KETOROLAC TROMETHAMINE INJ/PF 30 MG/1 ML SDV IV ONE (04:00)
[2020-03-09 07:15] LABS: HEMATOCRIT 31.8 % (36.0-47.0); HEMOGLOBIN 10.9 g/dL (12.0-15.5); MEAN CORPUSCULAR HEMOGLOBIN 29.9 pg (27.0-33.4); MEAN CORPUSCULAR HGB CONC 34.2 g/dL (32.0-36.0); MEAN CORPUSCULAR VOLUME 87 fl (80-97); PLATELET COUNT 240 10^3/uL (150-450); RED BLOOD COUNT 3.63 10^6/uL (3.72-5.28); RED CELL DISTRIBUTION WIDTH 13.2 % (11.5-14.0)
--- NOTE | 2020-03-09 07:59 | PDOC DISCHARGE SUMMARY ---
Impression - Admit/DC Date/PCP Admission Date/Primary Care Provider: HUMA SEARS Discharge Date: 03/09/20 - Discharge Diagnosis (1) Personal history of breast cancer Is this a current diagnosis for this admission?: Yes (2) Family history of breast cancer Is this a current diagnosis for this admission?: Yes (3) Postmenopausal bleeding Is this a current diagnosis for this admission?: Yes (4) Leiomyoma of body of uterus Is this a current diagnosis for this admission?: Yes - Assessment Summary: Patient underwent a robotic assisted total laparoscopic hysterectomy with bilateral salpingo-oophorectomy. She has had unremarkable postoperative course. She is passing flatus and is voiding normally, ambulating without difficulty, and her pain is well controlled. There is discharge home - Additional Information Resuscitation Status: Full Code Discharge Diet: As Tolerated Discharge Activity: Activity As Tolerated, Balance Activity w/Rest, No Driving, No Lifting Over 10 Pounds, No Lifting/Push/Pulling, Pelvic Rest, No tub bath, Walk Frequently Referrals: CALISTA GODINEZ MD [ACTIVE STAFF] - 03/23/20 3:00 pm (CALL THE OFFICE IF YOU HAVE ANY QUESTIONS AND CONCERNS. AND CONFIRM YOUR APPOINTMENT.) TEO KRAUS PA [Primary Care Provider] - Prescriptions: Oxycodone HCl/Acetaminophen [Percocet 5-325 mg Tablet] 1 tab PO Q4HP PRN #30 tablet PRN Reason: Docusate Sodium [Colace 100 mg Capsule] 100 mg PO BID #60 capsule Ibuprofen [Motrin 800 mg Tablet] 800 mg PO Q6A #60 tablet Home Medications: Lisinopril [Prinivil 20 mg Tablet] 30 mg PO DAILY 02/21/12 Sertraline HCl [Zoloft] 100 mg PO DAILY 02/21/12 Tamoxifen Citrate [Nolvadex 10 Mg Tablet] 20 mg PO DAILY 03/05/20 Docusate Sodium [Colace 100 mg Capsule] 100 mg PO BID #60 capsule 03/09/20 Ibuprofen [Motrin 800 mg Tablet] 800 mg PO Q6A #60 tablet 03/09/20 Oxycodone HCl/Acetaminophen [Percocet 5-325 mg Tablet] 1 tab PO Q4HP PRN #30 tablet 03/09/20 History of Present Illiness History of Present Illness: YUMI LAL is a 54 year old female Physical Exam - Physical Exam Vital Signs: Temp Pulse Resp BP Pulse Ox 98.5 F 83 16 109/63 94 03/09/20 07:05 03/09/20 07:05 03/09/20 07:05 03/09/20 07:05 03/09/20 07:05 Intake & Output 03/08/20 03/09/20 03/10/20 06:59 06:59 06:59 Intake Total 3960 Output Total 378 Balance 3582 Weight 80.5 kg Results Laboratory Results: WBC 9.0 10^3/uL (4.0-10.5) 03/09/20 06:40 RBC 3.63 10^6/uL (3.72-5.28) L 03/09/20 06:40 Hgb 10.9 g/dL (12.0-15.5) L 03/09/20 06:40 Hct 31.8 % (36.0-47.0) L 03/09/20 06:40 MCV 87 fl (80-97) 03/09/20 06:40 MCH 29.9 pg (27.0-33.4) 03/09/20 06:40 MCHC 34.2 g/dL (32.0-36.0) 03/09/20 06:40 RDW 13.2 % (11.5-14.0) 03/09/20 06:40 Plt Count 240 10^3/uL (150-450) 03/09/20 06:40 Sodium 137.3 mmol/L (137-145) 03/05/20 10:15 Potassium 4.5 mmol/L (3.6-5.0) 03/05/20 10:15 Chloride 107 mmol/L (98-107) 03/05/20 10:15 Carbon Dioxide 24 mmol/L (22-30) 03/05/20 10:15 Anion Gap 6 (5-19) 03/05/20 10:15 BUN 22 mg/dL (7-20) H 03/05/20 10:15 Creatinine 0.63 mg/dL (0.52-1.25) 03/05/20 10:15 Est GFR ( Amer) > 60 (>60) 03/05/20 10:15 Est GFR (MDRD) Non-Af > 60 (>60) 03/05/20 10:15 Glucose 100 mg/dL (75-110) 03/05/20 10:15 Calcium 8.9 mg/dL (8.4-10.2) 03/05/20 10:15 Total Bilirubin 0.5 mg/dL (0.2-1.3) 03/05/20 10:15 Direct Bilirubin 0.3 mg/dL (0.0-0.4) 03/05/20 10:15 Neonat Total Bilirubin Not Reportable 03/05/20 10:15 Neonat Direct Bilirubin Not Reportable 03/05/20 10:15 Neonat Indirect Bili Not Reportable 03/05/20 10:15 AST 29 U/L (14-36) 03/05/20 10:15 ALT 28 U/L (<35) 03/05/20 10:15 Alkaline Phosphatase 87 U/L (38-126) 03/05/20 10:15 Total Protein 7.3 g/dL (6.3-8.2) 03/05/20 10:15 Albumin 4.1 g/dL (3.5-5.0) 03/05/20 10:15 Urine Color YELLOW 03/05/20 10:15 Urine Appearance CLEAR 03/05/20 10:15 Urine pH 5.0 (5.0-9.0) 03/05/20 10:15 Ur Specific [place] 1.024 03/05/20 10:15 Urine Protein NEGATIVE mg/dL (NEGATIVE) 03/05/20 10:15 Urine Glucose (UA) NEGATIVE mg/dL (NEGATIVE) 03/05/20 10:15 Urine Ketones NEGATIVE mg/dL (NEGATIVE) 03/05/20 10:15 Urine Blood NEGATIVE (NEGATIVE) 03/05/20 10:15 Urine Nitrite NEGATIVE (NEGATIVE) 03/05/20 10:15 Urine Bilirubin NEGATIVE (NEGATIVE) 03/05/20 10:15 Urine Urobilinogen NEGATIVE mg/dL (<2.0) 03/05/20 10:15 Ur Leukocyte Esterase NEGATIVE (NEGATIVE) 03/05/20 10:15 Urine WBC (Auto) 0 /HPF 03/05/20 10:15 Squamous Epi Cells Auto 1 /HPF 03/05/20 10:15 Urine Mucus (Auto) RARE /LPF 03/05/20 10:15 Urine Ascorbic Acid NEGATIVE (NEGATIVE) 03/05/20 10:15 COVID-19 Source See comment 03/05/20 10:15 COVID-19 (VINOD) Not Detected (Not Detect) 03/05/20 10:15 Blood Type O POSITIVE 03/05/20 10:15 Antibody Screen NEGATIVE 03/05/20 10:15 Impressions: Chest X-Ray 03/05/20 00:00 IMPRESSION: NO ACUTE RADIOGRAPHIC FINDING IN THE CHEST. Stroke Is this a Stroke Patient?: No Acute Heart Failure Is this a Heart Failure Patient?: No
[2020-03-09 08:06] VITALS: BP 125/73
[2020-03-09] MEDS ORDERED: IBUPROFEN 800 MG TABLET PO SCH ×2 (09:00→12:00)
== END 2020-03-09 08:40 | disposition home or self-care (01) ==
LOC: OROUT 08:20 → 2N 13:45 → OROUT 03-09 08:40
PROVIDERS: ATTEND Obstetrics & Gynecology
DX: N80.0 Endometriosis of uterus (principal); D25.1 Intramural leiomyoma of uterus; N95.0 Postmenopausal bleeding; Z85.3 Personal history of malignant neoplasm of breast; Z01.812 Encounter for preprocedural laboratory examination; Z20.822 Contact with and (suspected) exposure to COVID-19; Z80.3 Family history of malignant neoplasm of breast; Z79.899 Other long term (current) drug therapy; I10 Essential (primary) hypertension; F32.9 Major depressive disorder, single episode, unspecified
CPT/HCPCS: 58571; S2900; 36415; 71046; 80053; 81001; 840; 85027; 86850; 86900; 86901; 87635; 88307; 93005; 93010; 94799; A4649; C1758; C9803; J0690; J1100; J1885; J2001; J2250; J2270; J2405; J2704; J2710; J2765; J3010; J3490